=== PATIENT | male | born 1960 | race Caucasian/White ===

== ENCOUNTER 2017-10-01 14:55 | Emergency (ER) | payer OTHER ==
--- NOTE | 2017-10-01 15:58 | EDM.PDOC ---
ED HPI GENERAL MEDICAL PROBLEM - General Chief Complaint: Lower Extremity Injury/Pain Stated Complaint: ankle pain Time Seen by Provider: 10/01/17 15:10 Source of Information: Reports: Patient History Limitations: Reports: No Limitations - History of Present Illness INITIAL COMMENTS - FREE TEXT/NARRATIVE: Patient was at work today when he developed spontaneous pain in the right foot. Has pain near lateral ankle as well as forefoot. No trauma/change in activity. No redness/lesions/heat/drainage. History of ankle fracture in distant past. No new shoes or other changes. Had brief pain in same area yesterday while at work but that resolved on its own after only a brief period of time. Unable to bear full weight on affected foot. No numbness/tingling. Right Ankle Pain Score (Numeric/FACES): 8 - Related Data Allergies Allergy/AdvReac Type Severity Reaction Status Date / Time No Known Allergies Allergy Verified 10/01/17 14:59 Home Meds: Home Meds predniSONE [Prednisone] 20 mg PO DAILY #3 tablet 10/01/17 [Rx] traMADol [Ultram] 50 mg PO Q6H PRN #15 tab 10/01/17 [Rx] Past Medical History Musculoskeletal History: Reports: Arthritis (shoulders), Other (See Below) ( right ankle fracture) Social & Family History - Tobacco Use Smoking Status *Q: Current Every Day Smoker Review of Systems - Review of Systems Review Of Systems: ROS reveals no pertinent complaints other than HPI. ED EXAM, GENERAL - Physical Exam Exam: See Below Exam Limited By: No Limitations General Appearance: Alert, Mild Distress Eye Exam: Bilateral Eye: EOMI, PERRL Throat/Mouth: Other (very poor dentition with multiple missing teeth) Head: Atraumatic, Normocephalic Neck: Supple Respiratory/Chest: No Respiratory Distress Peripheral Pulses: 2+: Dorsalis Pedis (R) Extremities: Normal Capillary Refill, Other (Exam of right ankle shows mild puffiness of lateral ankle however not tender directly over it. Some tendernss anterior to lateral ankle, as well as mid forefoot, and mild tenderness anterior to medial ankle. No bruising. Skin intact. No increased warmth/redness noted. Able to move ankle/toes but with some limitation from discomfort. ). No : Mottled, Pallor, Redness Neurological: Alert, Oriented, Normal Cognition Psychiatric: Normal Affect, Normal Mood Course - Vital Signs Last Recorded V/S: Last Vital Signs Temp 36.5 C 10/01/17 14:55 Pulse 98 10/01/17 14:55 Resp 19 10/01/17 14:55 BP 158/106 H 10/01/17 14:55 Pulse Ox 94 L 10/01/17 14:55 - Orders/Labs/Meds Orders: Active Orders 24 hr Category Date Time Status Ankle Min 3V Rt [CR] Stat Exams 10/01/17 15:02 Taken Foot Comp Min 3V Rt [CR] Stat Exams 10/01/17 15:02 Taken Meds: Medications Discontinued Medications Generic Name Dose Route Start Last Admin Trade Name Harsh PRN Reason Stop Dose Admin Ketorolac Tromethamine 60 mg 10/01/17 16:18 10/01/17 16:25 Toradol IM 10/01/17 16:19 60 mg ONETIME ONE Administration - Radiology Interpretation Free Text/Narrative:: No obvious acute fracture on Xray - Re-Assessments/Exams Free Text/Narrative Re-Assessment/Exam: 10/01/17 17:25 No acute injury identified on xray. Uncertain as to specific cause of pain complaint. Patient has fractured the ankle before and this may be related to that previous fracture/arthritis given lack of obvious trigger for current pain complaint. Plan at this time is to give pain medications and have patient use crutches/avoid weight bearing for the next several days. It was recommended that he follow up with Orthopedics walk-in clinic in [place] tomorrow to get the ankle checked. He should also have BP rechecked. This was noted to be elevated. May be in part due to discomfort from ankle pain. Patient also admits to not liking going to doctors. Has history of smoking. Lower room air sats noted at 94%. Suspect some degree of COPD present. It was highly recommended to patient that he find someone he is comfortable with so that he can follow up for BP and other possible ongoing health issues. Toradol given in ER. Rx for Tramadol and short course Prednisone given. Precautions reviewed. Departure - Departure Time of Disposition: 15:53 Disposition: Home, Self-Care 01 Condition: Good Clinical Impression: Right foot pain Hypertension Qualifiers: Hypertension type: unspecified Qualified Code(s): I10 - Essential (primary) hypertension - Discharge Information *PRESCRIPTION DRUG MONITORING PROGRAM REVIEWED*: Yes *COPY OF PRESCRIPTION DRUG MONITORING REPORT IN PATIENT SUGEY: Yes Prescriptions: predniSONE [Prednisone] 20 mg PO DAILY #3 tablet traMADol [Ultram] 50 mg PO Q6H PRN #15 tab PRN Reason: Pain Instructions: Ketorolac injection, Pain Without a Known Cause Referrals: PCP,Unknown [Primary Care Provider] - Forms: ED Department Discharge Additional Instructions: Avoid weight bearing on right foot. Use crutches. Observe for changes over the next few days. Look for increased swelling, redness/heat/drainage that may help us identify what is going on. If pain is still present tomorrow, you will need to get to [place] and be seen by walk in clinic at either [facility] or [facility]. They can re-evaluate you, impose further work restrictions as needed, and decide if additional testing is needed. You may take Tylenol in addition to the prescription medications you were given tonight. Have them recheck your blood pressure tomorrow. It was elevated today. - My Orders Last 24 Hours: My Active Orders 10/01/17 15:02 Ankle Min 3V Rt [CR] Stat Foot Comp Min 3V Rt [CR] Stat - Assessment/Plan Last 24 Hours: My Active Orders 10/01/17 15:02 Ankle Min 3V Rt [CR] Stat Foot Comp Min 3V Rt [CR] Stat
[2017-10-01] MEDS ORDERED: Ketorolac 60 MG/2 ML SDV IM ONE (16:18)
== END 2017-10-01 16:45 | disposition home or self-care (01) ==
LOC: LL.ED 14:55
DX: M79.671 Pain in right foot (principal); I10 Essential (primary) hypertension; F17.200 Nicotine dependence, unspecified, uncomplicated
CPT/HCPCS: 73610-RT; 73630-RT; 96372; 99283; J1885